=== PATIENT | male | born 1950 | race Caucasian/White ===

== ENCOUNTER 2023-11-09 07:29 | Emergency (ER) | payer MEDICARE, OTHER, SELFPAY ==
[2023-11-09] VITALS (17 sets, daily range): BP systolic 100–147; BP diastolic 58–118; BMI 26.1
--- NOTE | 2023-11-09 07:46 | ED.GENMED ---
History of Present Illness
General
Chief Complaint: Heart Rate Problem
Time Seen by Provider: 11/09/23 07:45
Travel History
Have you had any contact with someone who has COVID-19?: No
Do you have any symptoms of coronavirus? Fever > 100 degrees, chills, cough, shortness of breath, sore throat, loss of taste or smell, muscle aches, or headache?: No
History of Present Illness
History of Present Illness:
HPI: At midnight (about 8 hours ago), the patient had abrupt onset sensation of palpitations. This woke him from sleep. Intermittently he has been having similar episodes overnight. He has some vague lightheadedness with exertion but currently
only has palpitations at rest. He does not have any chest pain. He states he is compliant with Xarelto and last took it last night. He denies missing any doses of Xarelto.
EXAM:
GENERAL: Well appearing in no distress
HEENT: Moist oral mucosa
CARDIOVASCULAR: No murmurs, tachycardic heart rate with irregular rhythm, No chest wall tenderness
PULMONARY: No respiratory distress, breath sounds are clear and equal
ABDOMEN: Soft with no peritoneal signs, no tenderness
NEUROLOGIC: Excellent strength all extremities, no coordination deficits
PSYCHIATRIC: Appropriate mental status, normal insight and judgement
EXTREMITIES: Nontender, no edema, moves all extremities equally
SKIN: No rash, no lesions
ED COURSE:
7:50 AM: I initially evaluated patient
NUMBER AND COMPLEXITY OF PROBLEMS ADDRESSED AT THE ENCOUNTER
� Chronic conditions affecting care: Atrial fibrillation on Xarelto
� Acute Exacerbation and/or Progression of Chronic Illness: Acute exacerbation of chronic problem
� Differential Diagnosis includes: Rapid atrial fibrillation
AMOUNT AND/OR COMPLEXITY OF DATA TO BE REVIEWED AND ANALYZED
� I performed an independent evaluation of and my interpretation is:
EKG: A-fib 126, left axis deviation, borderline LVH, on 03/29/2021, the patient was in sinus rhythm
CT:
X-rays:
Laboratory Studies: CBC and chemistries unremarkable, TSH currently pending.
Other:
� Review of other/old records: Had admission in November 2020 for new onset A-fib; the patient had a pacemaker placed March 29, 2021 due to sick sinus syndrome
� Clinical information was obtained by an independent historian: I spoke to the at bedside
� Prescriptions/Medications Considered but not given:
� Further testing considered but not performed:
RISK OF COMPLICATIONS AND/OR MORBIDITY OR MORTALITY OF PATIENT MANAGEMENT
� Social determinants of health affecting care: Lives at home
� Discussion with other providers: At around 8 AM, I discussed case with Dr. Campos who agrees with electrocardioversion then ablation as outpatient
� Escalation of care including admission/observation vs risk of discharge considered: Patient arrives in rapid A-fib with rates in the 130s to 160s range. He has some vague lightheadedness with exertion but currently only feels
some mild palpitations at rest. He is very well-appearing. He gave informed written consent for procedural sedation and electrical cardioversion. Dr. Campos was in agreement with this. At 9:01 AM, the patient underwent successful procedural
sedation/electrocardioversion. On reassessment at 9:25 AM, the patient has no further symptoms. He is very well-appearing and feels comfortable going home. He was instructed not to drive today.
Past History
Past History
ED Past Medical History: Other (BPH on Flomax)
Social History
Tobacco: Non-smoker
Employment: Employed
Phy Exam
Physical Exam
Physical Exam:
See HPI
Course
Orders/Labs/Results
Orders:
Orders
11/09/23 07:34
Electrocardiogram (*1) Urgent
Reason for Study: Atrial Fibrillation
EKG- Treatment ONCE
11/09/23 07:59
Basic Metabolic Panel Urgent
Complete Blood Count/With Diff Urgent
Magnesium Urgent
TSH Reflex To Free T4 Urgent
11/09/23 08:23
Propofol [Diprivan] 20 ml .ROUTE .STK-MED
11/09/23 09:09
Electrocardiogram (*1) Urgent
Reason for Study: Atrial Fibrillation
EKG- Treatment ONCE
Abnormal Lab Results
11/09/23
07:59
RBC 4.12 L 10^6/uL
(4.70-6.10)
Hct 37.7 L %
(39.0-52.0)
MCH 32.0 H pg
(27.0-31.0)
Absolute Lymphs (auto) 1.0 L 10^3/uL
(1.2-3.4)
Absolute Monos (auto) 0.7 H 10^3/uL
(0.1-0.6)
Lymphocytes % 17.3 L %
(20.5-51.1)
Monocytes % 12.3 H %
(1.7-9.3)
Chloride 109 H mmol/L
(98-107)
BUN 25 H mg/dl
(9-20)
Glucose 127 H mg/dl
(70-99)
11/09/23 07:59
11/09/23 07:59
Vital Signs
Initial and Last Documented VS:
Initial Vital Signs
Temp Pulse Resp BP Pulse Ox
98.1 F 66 18 135/69 98
11/09/23 07:31 11/09/23 07:31 11/09/23 07:31 11/09/23 07:31 11/09/23 07:31
Last Documented Vital Signs
Temp Pulse Resp BP Pulse Ox
97.6 F 68 18 100/59 94
11/09/23 09:24 11/09/23 09:35 11/09/23 09:35 11/09/23 09:35 11/09/23 09:35
Procedures
Cardioversion
Indication:: Afib
Synchronized?: Yes
Energy Used: 200 joules
Number of attempts: 1
Successful?: Yes
ASA Risk Score: Class II
Any reaction or bad outcome to prior sedation/anesthesia?: No history of a reaction
Sedation level to be attained: moderate
Chart and allergies reviewed: Yes
Patient reassessed prior to sedation: Yes
Time out completed at (validating right patient & procedure): 09:01
History of difficult intubation: No
Airway free of obstruction: Yes
Patient has a gag reflex: Yes
Patient is able to open mouth: Yes
Patient has no dentures: Yes
Patient has no loose teeth: Yes
Medication administered by Provider during Moderate Sedation: IV Propofol (mg)
Total dose administered: 80
Time drug administered: :
Start Time: 09:01
Stop Time: 09:06
*Critical Care Note
Total Time (30-74mins, 75-104mins- exclusive of procedures): Not Applicable
ED Attending Note
-
Portions of this chart may have been created with voice recognition software.� Occasional wrong word or��sound alike� substitutions may have occurred due to the inherent limitations of voice recognition software.
Discharge Plan
Departure
Patient Disposition: Home (Routine Discharge)
Date of Disposition: 11/09/23
Time of Disposition: :24
Patient with high blood pressure during this ER visit?: Yes
Discharge Problem:
Atrial fibrillation with rapid ventricular response
Instructions: Atrial Fibrillation (DC)
Prescriptions:
No Action
tamsulosin 0.4 MG capsule
0.4 mg PO DAILY
multivitamin with folic acid [Tab-A-Anai] 1 TABLET tablet
1 tab PO DAILY
rivaroxaban [Xarelto] 20 MG tablet
20 mg PO QPM Qty: 30 0RF
glucosamine brewer 2KCl-chondroit [Glucosamine Sulf-Chondroitin] 1 EACH capsule
1 cap PO DAILY
omega 3-zao-ukj-fish oil [Fish Oil] 1 EACH capsule
1 ea PO DAILY
diltiazem HCl 120 MG capsule,extended release 24hr
120 mg PO DAILY Qty: 90 3RF
Rx Instructions:
Restart in AM 03/30
furosemide 20 MG tablet
20 mg PO SUTUTH
Referrals:
Juan Francisco Mustafa MD [Family Provider] -
Activity Restrictions/Additional Instructions:
You were sedated and successfully underwent electrical cardioversion. I discussed with Dr. Kumar's partner, Dr. Campos, earlier. Continue your normal medication. Return here if worse. Follow-up with cardiology. No driving today.
Interventions
Interventions:
*Risk Screen - Suicide Last Done: 11/09/23 07:31
*General Assessment Last Done: 11/09/23 07:31
*Neglect/Abuse Screening Last Done: 11/09/23 07:31
ED- Fall Risk Assessment Last Done: 11/09/23 07:46
*ED COVID-19 Vaccine History Last Done: 11/09/23 07:46
ED- Cardiac Assessment Last Done: 11/09/23 07:46
ED- Pulmonary Assessment Last Done: 11/09/23 07:46
[2023-11-09 08:10] LABS: % Basophils 0.4 % (0-2); % Eosinophils 0.9 % (0-6); % Lymphocytes 17.3 % (20.5-51.1); % Monocytes 12.3 % (1.7-9.3); % Neutrophils 69.1 % (42.2-75.2); Absolute Eosinophils 0.1 10^3/uL (0-0.7); Absolute Monocytes 0.7 10^3/uL (0.1-0.6); Hematocrit 37.7 % (39.0-52.0); Hemoglobin 13.2 g/dL (13.0-18.0); Mean Corpuscular Volume 91.5 fL (80.0-94.0); Mean Platelet Volume 9.2 fL (7.4-10.4); Nucleated Red Blood Cells % 0 % (-); Platelet Count 189 10^3/uL (130-400); Red Blood Cell Count 4.12 10^6/uL (4.70-6.10); Red Cell Dist. Width 13.1 % (11.5-14.5); White Blood Cell Count 5.7 10^3/uL (4.8-10.8)
[2023-11-09 08:40] LABS: Blood Urea Nitrogen 25 mg/dl (9-20); Calcium 9.2 mg/dl (8.4-10.2); Carbon Dioxide 23 mmol/L (22-30); Chloride 109 mmol/L (98-107); Estimated Creatinine Clearance 77 ml/min; Glucose 127 mg/dl (70-99); Magnesium 1.9 mg/dl (1.6-2.3); Potassium 3.8 mmol/L (3.5-5.1); Sodium 139 mmol/L (135-145); eGFR > 60.00
[2023-11-09 10:13] LABS: TSH Reflex To Free T4 4.01 uIU/ml (0.47-4.68)
== END 2023-11-09 10:38 | disposition home or self-care (01) ==
LOC: EMR 07:29
PROVIDERS: EMERGENCY PHYSICIAN Emergency Medicine; FAMILY PHYSICIAN Family Medicine
DX: R00.2 Palpitations (principal); R42 Dizziness and giddiness; I48.91 Unspecified atrial fibrillation; Z79.01 Long term (current) use of anticoagulants; Z95.0 Presence of cardiac pacemaker; N40.0 Benign prostatic hyperplasia without lower urinary tract symptoms
CPT/HCPCS: 92960; 99285; 99152; 80048; 83735; 84443; 85025; 93005

== ENCOUNTER 2024-03-07 06:03 | Emergency (ER) | payer MEDICARE, OTHER, SELFPAY ==
[2024-03-07 06:15] VITALS: BP 160/85
[2024-03-07 06:48] LABS: % Basophils 0.6 % (0-2); % Eosinophils 1.5 % (0-6); % Immature Granulocytes 0.4 % (0-0.5); % Lymphocytes 25.7 % (20.5-51.1); % Monocytes 14.5 % (1.7-9.3); % Neutrophils 57.3 % (42.2-75.2); Absolute Eosinophils 0.1 10^3/uL (0-0.7); Absolute Lymphocytes 1.2 10^3/uL (1.2-3.4); Absolute Monocytes 0.7 10^3/uL (0.1-0.6); Absolute Neutrophils 2.7 10^3/uL (1.4-6.5); Hematocrit 38.6 % (39.0-52.0); Hemoglobin 13.5 g/dL (13.0-18.0); Mean Corpuscular Hgb 31.4 pg (27.0-31.0); Mean Corpuscular Volume 89.8 fL (80.0-94.0); Mean Platelet Volume 8.9 fL (7.4-10.4); Nucleated Red Blood Cells % 0 % (-); Platelet Count 186 10^3/uL (130-400); White Blood Cell Count 4.7 10^3/uL (4.8-10.8)
[2024-03-07 06:55] LABS: ALT (SGPT) 24 U/L (0-50); AST (SGOT) 27 U/L (17-59); Alkaline Phosphatase 55 U/L (38-126); Blood Urea Nitrogen 25 mg/dl (9-20); Calcium 9.6 mg/dl (8.4-10.2); Carbon Dioxide 23 mmol/L (22-30); Chloride 106 mmol/L (98-107); Glucose 113 mg/dl (70-99); Potassium 3.8 mmol/L (3.5-5.1); Sodium 139 mmol/L (135-145); Total Bilirubin 1.1 mg/dl (0.2-1.3); eGFR > 60.00
[2024-03-07 07:06] LABS: Troponin I < 0.012 ng/ml
--- NOTE | 2024-03-07 09:22 | ED.GENMED ---
History of Present Illness
General
Chief Complaint: Heart Rate Problem
Exam Limitations: none
Time Seen by Provider: 03/07/24 09:20
Nursing documentation reviewed up to this point in time: agreed with
Travel History
Have you had any contact with someone who has COVID-19?: No
Do you have any symptoms of coronavirus? Fever > 100 degrees, chills, cough, shortness of breath, sore throat, loss of taste or smell, muscle aches, or headache?: No
History of Present Illness
History of Present Illness:
Patient is a 73-year-old male with history of A-fib, heart murmur mitral valve prolapse presents to the ER for evaluation of elevated heart rate. Patient reports he took his heart rate yesterday randomly and it was in the 80s. He reports it
normally is in the 60s. He randomly checks his pulse. He does have a history of A-fib and is anticoagulated as documented but did not feel that he was in A-fib.
He has no symptoms, denies any chest pain lightheaded dizziness. He denies any recent illness. He denies any new ljfe-srm-coiccft cough cold medicines. He is on Xarelto. He is a patient of Dr. Kumar
Past History
Past History
ED Past Medical History: Other (BPH on Flomax)
Social History
Tobacco: Non-smoker
Employment: Employed
Review of Systems
Review of Systems
Allergies reviewed?: Yes
All Other Systems: ROS reviewed and negative except as documented in HPI and ROS
Constitutional: Reports no symptoms; Denies fatigue
Respiratory: Reports no symptoms
Cardiac: Reports no symptoms
ABD/GI: Reports no symptoms
Musculoskeletal: Reports no symptoms
Skin: Reports no symptoms
Neurological: Reports no symptoms
Psychiatric: Reports no symptoms
Phy Exam
General Physical Exam
General Presentation: no apparent distress
General age: appears stated age
General Skin: warm and dry
General Habitus: normal
General Mental: alert
General Hydration: appears well hydrated
Cardiovascular Exam
Cardiovascular Exam: regular rate/rhythm, no murmur and normal peripheral pulses
Pulmonary Exam
Pulmonary Exam: lungs clear and no respiratory distress
Neurological Exam
Neurological Exam: alert and oriented x3
[place] Coma Scale
Eye Opening: Spontaneous
Verbal Response: Oriented
Motor Response: Obeys Commands
GCS Total Score: 15
Musculoskeletal Exam
Musculoskeletal Exam: full ROM
Skin Exam
Skin Exam: normal color and warm/dry
Psychiatric Exam
Psychiatric Exam: normal mood/affect
Course
Orders/Labs/Results
Orders:
Orders
03/07/24 06:05
EKG [Electrocardiogram (*1)] Urgent
Reason for Study: Palpitations
EKG- Treatment ONCE
03/07/24 06:26
Complete Blood Count/With Diff Urgent
Comprehensive Metabolic Panel Urgent
TSH Reflex To Free T4 Urgent
Comment: ADD ON
Troponin I Urgent
03/07/24 09:49
0.9% Sodium Chloride 500 ml [Nss] 500 ml IV BOLUS
03/07/24 09:50
Add On- LAB Urgent
Tests Added?: tsh w/ reflexive t4
Abnormal Lab Results
03/07/24
06:26
WBC 4.7 L 10^3/uL
(4.8-10.8)
RBC 4.30 L 10^6/uL
(4.70-6.10)
Hct 38.6 L %
(39.0-52.0)
MCH 31.4 H pg
(27.0-31.0)
Absolute Monos (auto) 0.7 H 10^3/uL
(0.1-0.6)
Monocytes % 14.5 H %
(1.7-9.3)
BUN 25 H mg/dl
(9-20)
Glucose 113 H mg/dl
(70-99)
03/07/24 06:26
03/07/24 06:26
Vital Signs
Initial and Last Documented VS:
Initial Vital Signs
Temp Pulse Resp BP Pulse Ox
98.2 F 78 16 160/85 98
03/07/24 06:15 03/07/24 06:15 03/07/24 06:15 03/07/24 06:15 03/07/24 06:15
Last Documented Vital Signs
Temp Pulse Resp BP Pulse Ox
98.2 F 67 16 152/77 97
03/07/24 06:15 03/07/24 11:08 03/07/24 11:08 03/07/24 11:08 03/07/24 11:08
MDM/Problems Addressed
MDM/Problems Addressed:
Patient is a 73-year-old male who checked his heart randomly and it was found to be in the 80s. He reports normally is in the 60s. He is asymptomatic. He presents here awake alert no acute distress heart rate here in the monitor has been in the
60s to 70s. He remains in no acute distress with no symptoms. No concerning findings on labs. His BUN is mildly elevated He was initially written for fluids but wants to go . I did encourage patient to increase fluid intake. Stable for
discharge home with outpatient follow-up by his garnett fixer/family doctor.
*Pulse Oximetry
Patient hypoxic: no
*EKG
Interpreted by ED Provider?: Yes
Heart Rate: 78
Rate: normal
Rhythm: sinus
*Critical Care Note
Total Time (30-74mins, 75-104mins- exclusive of procedures): Not Applicable
ED Attending Note
-
Portions of this chart may have been created with voice recognition software.� Occasional wrong word or��sound alike� substitutions may have occurred due to the inherent limitations of voice recognition software.
Discharge Plan
Departure
Patient Disposition: Home (Routine Discharge)
Date of Disposition: 03/07/24
Time of Disposition: 10:45
Patient with high blood pressure during this ER visit?: Yes
Discharge Problem:
medical evaluation
Instructions: BLOOD PRESSURE
Prescriptions:
No Action
tamsulosin 0.4 MG capsule
0.4 mg PO DAILY
multivitamin with folic acid [Tab-A-Anai] 1 TABLET tablet
1 tab PO DAILY
rivaroxaban [Xarelto] 20 MG tablet
20 mg PO QPM Qty: 30 0RF
glucosamine brewer 2KCl-chondroit [Glucosamine Sulf-Chondroitin] 1 EACH capsule
1 cap PO DAILY
omega 9-xhq-jwp-fish oil [Fish Oil] 1 EACH capsule
1 ea PO DAILY
diltiazem HCl 120 MG capsule,extended release 24hr
120 mg PO DAILY Qty: 90 3RF
Rx Instructions:
Restart in AM 03/30
furosemide 20 MG tablet
20 mg PO SUTUTH
Referrals:
Aldo Kumar MD [Active] -
Juan Francisco Mustafa MD [Family Provider] -
Activity Restrictions/Additional Instructions:
As discussed increase fluid intake. You are here for elevated heart rate today however your heart rate was normal here in the ER. Return if any worsening of symptoms of lightheaded dizziness chest pain. Continue to take your medications as
previously recommended and return if any worsening of symptoms. Follow-up with cardiology/family practice as needed.
Interventions
Interventions:
*Risk Screen - Suicide Last Done: 03/07/24 06:08
*General Assessment Last Done: 03/07/24 06:08
*Neglect/Abuse Screening Last Done: 03/07/24 06:08
ED- Fall Risk Assessment Last Done: 03/07/24 06:08
*ED COVID-19 Vaccine History Last Done: 03/07/24 06:08
*Nursing Disposition Last Done: 03/07/24 11:11
Discharge Date and Time
Discharge Date/Time: 03/07/24 11:12
Print Language: ALBANIAN
[2024-03-07 11:08] VITALS: BP 152/77
== END 2024-03-07 11:12 | disposition home or self-care (01) ==
LOC: EMR 06:03
PROVIDERS: Nurse Practitioner; EMERGENCY PHYSICIAN Emergency Medicine; FAMILY PHYSICIAN Family Medicine
DX: Z04.89 Encounter for examination and observation for other specified reasons (principal); I48.91 Unspecified atrial fibrillation; R01.1 Cardiac murmur, unspecified; I34.1 Nonrheumatic mitral (valve) prolapse; N40.0 Benign prostatic hyperplasia without lower urinary tract symptoms; Z79.01 Long term (current) use of anticoagulants
CPT/HCPCS: 99283; 80053; 84443; 84484; 85025; 93005

== ENCOUNTER 2024-11-28 04:22 | Emergency (ER) | payer MEDICARE, OTHER, SELFPAY ==
[2024-11-28] VITALS (11 sets, daily range): BP systolic 125–143; BP diastolic 63–82; BMI 26.3
[2024-11-28 04:49] LABS: % Basophils 0.5 % (0-2); % Eosinophils 1.6 % (0-6); % Immature Granulocytes 0.2 % (0-0.5); % Lymphocytes 25.9 % (20.5-51.1); % Monocytes 13.3 % (1.7-9.3); % Neutrophils 58.5 % (42.2-75.2); Absolute Eosinophils 0.1 10^3/uL (0-0.7); Absolute Lymphocytes 1.5 10^3/uL (1.2-3.4); Absolute Monocytes 0.8 10^3/uL (0.1-0.6); Absolute Neutrophils 3.4 10^3/uL (1.4-6.5); Hematocrit 39.1 % (39.0-52.0); Hemoglobin 13.5 g/dL (13.0-18.0); Mean Corp Hgb Conc. 34.5 g/dL (33.0-37.0); Mean Corpuscular Hgb 31.8 pg (27.0-31.0); Mean Corpuscular Volume 92.2 fL (80.0-94.0); Mean Platelet Volume 9.5 fL (7.4-10.4); Nucleated Red Blood Cells % 0 % (-); Platelet Count 167 10^3/uL (130-400); Red Blood Cell Count 4.24 10^6/uL (4.70-6.10); White Blood Cell Count 5.7 10^3/uL (4.8-10.8)
[2024-11-28 05:21] LABS: ALT (SGPT) 24 U/L (0-50); AST (SGOT) 22 U/L (17-59); Albumin 4.3 g/dl (3.5-5.0); Alkaline Phosphatase 55 U/L (38-126); Blood Urea Nitrogen 25 mg/dl (9-20); Calcium 9.6 mg/dl (8.4-10.2); Carbon Dioxide 21 mmol/L (22-30); Chloride 106 mmol/L (98-107); Glucose 118 mg/dl (70-99); Potassium 3.9 mmol/L (3.5-5.1); Sodium 137 mmol/L (135-145); Total Bilirubin 1.3 mg/dl (0.2-1.3); Total Protein 6.9 g/dl (6.3-8.2); eGFR > 60.00
[2024-11-28 05:23] LABS: Troponin I < 0.012 ng/ml
--- NOTE | 2024-11-28 06:47 | ED.GENMED ---
History of Present Illness
General
Chief Complaint: Heart Rate Problem
Source: patient
Time Seen by Provider: 11/28/24 06:38
History of Present Illness
History of Present Illness:
73-year-old male presents to the emergency room complaining of rapid and irregular heartbeat. He has a history of atrial fibrillation which she states is related to an abnormal mitral valve. He takes diltiazem and Xarelto because of this. He has
been compliant with his Xarelto and denies missing any doses in the past couple weeks. Patient has undergone cardioversion in the past. He does have a pacemaker. Patient believes the symptoms began yesterday with irregular heart rate and also we
note he felt short of breath ascending a flight of steps that he would expect. He does also have some dizziness.
Past History
Past History
ED Past Medical History: Other (BPH on Flomax)
Social History
Tobacco: Non-smoker
Employment: Employed
Phy Exam
Physical Exam
Physical Exam:
General: Awake, Alert, Oriented X3. No acute distress.
Vitals: Tachycardic
Head: Atraumatic
Eyes: Pupils equal, EOMI
Throat: Airway intact, no exudates
Neck: Trachea midline
Lungs: Clear and equal b/l
Heart: Tachycardic, irregular rate, no murmurs
Neuro: Nonfocal
Skin: Warm, dry, no rash
Extremities: pulses equal b/l, no edema
Course
Orders/Labs/Results
Orders:
Orders
11/28/24 04:24
Electrocardiogram (*1) Urgent
Reason for Study: Atrial Fibrillation
11/28/24 04:25
EKG- Treatment ONCE
11/28/24 04:42
Complete Blood Count/With Diff Urgent
Comprehensive Metabolic Panel Urgent
Troponin I Urgent
11/28/24 06:47
Propofol [Diprivan] 20 ml .ROUTE .STK-MED
11/28/24 07:04
EKG [Electrocardiogram (*1)] Urgent
Reason for Study: Atrial Fibrillation
Comment: cardioversion
11/28/24 07:05
EKG- Treatment ONCE
Abnormal Lab Results
11/28/24
04:42
RBC 4.24 L 10^6/uL
(4.70-6.10)
MCH 31.8 H pg
(27.0-31.0)
Absolute Monos (auto) 0.8 H 10^3/uL
(0.1-0.6)
Monocytes % 13.3 H %
(1.7-9.3)
Carbon Dioxide 21 L mmol/L
(22-30)
BUN 25 H mg/dl
(9-20)
Glucose 118 H mg/dl
(70-99)
11/28/24 04:42
11/28/24 04:42
Vital Signs
Initial and Last Documented VS:
Initial Vital Signs
Temp Pulse Resp BP Pulse Ox
97.6 F 74 20 138/82 100
11/28/24 04:29 11/28/24 04:29 11/28/24 04:29 11/28/24 04:29 11/28/24 04:29
Last Documented Vital Signs
Temp Pulse Resp BP Pulse Ox
98.3 F 76 10 132/70 96
11/28/24 08:41 11/28/24 08:30 11/28/24 08:30 11/28/24 08:30 11/28/24 08:30
Procedures
Cardioversion
Indication:: Afib
Synchronized?: Yes
Energy Used: 200 joules
Successful?: Yes
ASA Risk Score: Class II
Any reaction or bad outcome to prior sedation/anesthesia?: No history of a reaction
Sedation level to be attained: moderate
Chart and allergies reviewed: Yes
Patient reassessed prior to sedation: Yes
Time out completed at (validating right patient & procedure): 06:56
History of difficult intubation: No
Airway free of obstruction: Yes
Patient has a gag reflex: Yes
Patient is able to open mouth: Yes
Patient has no dentures: Yes
Patient has no loose teeth: Yes
Medication administered by Provider during Moderate Sedation: IV Propofol (mg)
Total dose administered: 60
Time drug administered: 06:58
Start Time: 06:58
Stop Time: 07:08
*Pulse Oximetry
Patient hypoxic: no
*EKG
Interpreted by ED Provider?: Yes
Heart Rate: 78
Rate: normal
Rhythm: sinus
[place]: normal axis
Interval: normal interval
QRS Pattern: normal QRS
Ischemia: no ischemia
*Knitting Machine Mechanic Interpretation
Rate: normal
Interpretation: normal
Rhythm: sinus
*Critical Care Note
Total Time (30-74mins, 75-104mins- exclusive of procedures): Not Applicable
ED Attending Note
-
Portions of this chart may have been created with voice recognition software.� Occasional wrong word or��sound alike� substitutions may have occurred due to the inherent limitations of voice recognition software.
Discharge Plan
Departure
Patient Disposition: Home (Routine Discharge)
Date of Disposition: 11/28/24
Time of Disposition: 08:13
Patient with high blood pressure during this ER visit?: No
Condition: Good
Discharge Problem:
Paroxysmal A-fib
Instructions: Atrial Fibrillation (DC), Procedural Sedation, Adult ED
Prescriptions:
No Action
tamsulosin 0.4 MG capsule
0.4 mg PO DAILY
multivitamin with folic acid [Tab-A-Anai] 1 TABLET tablet
1 tab PO DAILY
rivaroxaban [Xarelto] 20 MG tablet
20 mg PO QPM Qty: 30 0RF
glucosamine brewer 2KCl-chondroit [Glucosamine Sulf-Chondroitin] 1 EACH capsule
1 cap PO DAILY
omega 3-kgy-sht-fish oil [Fish Oil] 1 EACH capsule
1 ea PO DAILY
diltiazem HCl 120 MG capsule,extended release 24hr
120 mg PO DAILY Qty: 90 3RF
Rx Instructions:
Restart in AM 03/30
furosemide 20 MG tablet
20 mg PO SUTUTH
Referrals:
Juan Francisco Mustafa MD [Family Provider] -
Activity Restrictions/Additional Instructions:
Please call your cardiology office to make an appointment for follow up.
Interventions
Interventions:
*Risk Screen - Suicide Last Done: 11/28/24 04:29
*General Assessment Last Done: 11/28/24 07:04
*Neglect/Abuse Screening Last Done: 11/28/24 04:29
ED- Fall Risk Assessment Last Done: 11/28/24 06:29
*ED COVID-19 Vaccine History Last Done: 11/28/24 07:04
*Nursing Disposition Last Done: 11/28/24 08:42
ED- Cardiac Assessment Last Done: 11/28/24 06:29
ED- Pulmonary Assessment Last Done: 11/28/24 06:29
Discharge Date and Time
Discharge Date/Time: 11/28/24 08:44
Print Language: ARMENIAN
== END 2024-11-28 08:44 | disposition home or self-care (01) ==
LOC: EMR 04:22
PROVIDERS: Emergency Medicine; EMERGENCY PHYSICIAN Emergency Medicine; FAMILY PHYSICIAN Family Medicine
DX: I48.0 Paroxysmal atrial fibrillation (principal); N40.0 Benign prostatic hyperplasia without lower urinary tract symptoms; Z79.01 Long term (current) use of anticoagulants; Z79.899 Other long term (current) drug therapy; Z95.0 Presence of cardiac pacemaker
CPT/HCPCS: 92960; 99152; 99285; 80053; 84484; 85025; 93005

== ENCOUNTER → 2025-01-17 09:12 | Outpatient (REF) | payer MEDICARE, OTHER, SELFPAY | LOC: HWRCS 09:12 | PROVIDERS: ATTENDING PHYSICIAN Internal Medicine; FAMILY PHYSICIAN Family Medicine | DX: I48.0 Paroxysmal atrial fibrillation (principal); I49.5 Sick sinus syndrome | CPT/HCPCS: 93306 ==

== ENCOUNTER → 2025-03-06 11:02 | Outpatient (REF) | payer MEDICARE, OTHER, SELFPAY | LOC: HWRAD 11:02 | PROVIDERS: ATTENDING PHYSICIAN Family Medicine | DX: R19.09 Other intra-abdominal and pelvic swelling, mass and lump (principal) | CPT/HCPCS: 76870; 93976 ==

== ENCOUNTER → 2025-05-26 10:41 | Outpatient (REF) | payer MEDICARE, OTHER, SELFPAY | LOC: REG 10:41 | PROVIDERS: ATTENDING PHYSICIAN Physician Assistant; FAMILY PHYSICIAN Family Medicine | DX: M25.572 Pain in left ankle and joints of left foot (principal); M79.672 Pain in left foot; R58 Hemorrhage, not elsewhere classified | CPT/HCPCS: 73610; 73630 ==

== ENCOUNTER 2025-09-04 20:00 | Emergency (ER) | payer MEDICARE, OTHER, SELFPAY ==
[2025-09-04] VITALS (15 sets, daily range): BP systolic 122–145; BP diastolic 66–91; BMI 26.7
[2025-09-04 20:17] LABS: Hematocrit 40.1 % (39.0-52.0); Hemoglobin 13.5 g/dL (13.0-18.0); Mean Corp Hgb Conc. 33.7 g/dL (33.0-37.0); Mean Corpuscular Volume 87.9 fL (80.0-94.0); Nucleated Red Blood Cells % 0 % (-); Platelet Count 189 10^3/uL (130-400); Red Cell Dist. Width 14.7 % (11.5-14.5)
[2025-09-04 20:37] LABS: ALT (SGPT) 23 U/L (0-50); AST (SGOT) 22 U/L (17-59); Albumin 4.2 g/dl (3.5-5.0); Alkaline Phosphatase 47 U/L (38-126); Blood Urea Nitrogen 31 mg/dl (9-20); Calcium 9.6 mg/dl (8.4-10.2); Carbon Dioxide 28 mmol/L (22-30); Chloride 104 mmol/L (98-107); Glucose 130 mg/dl (70-99); Potassium 4.1 mmol/L (3.5-5.1); Sodium 136 mmol/L (135-145); Total Protein 7.5 g/dl (6.3-8.2); eGFR > 60.00
--- NOTE | 2025-09-04 22:46 | ED.GENMED ---
History of Present Illness
<Peter Mercedes MD - Last Filed: 09/04/25 22:47>
General
Chief Complaint: Heart Rate Problem
Time Seen by Provider: 09/04/25 22:01
<Moreno Cuevas PA-C - Last Filed: 09/04/25 23:47>
General
Source: patient
History of Present Illness
History of Present Illness:
74-year-old male with past medical history of atrial fibrillation presenting to the emergency department for evaluation after he felt himself going to go to for bed earlier today, persistent palpitations throughout the day so decided to come to the
ER for further evaluation. He notes no pain but does endorse some mild lightheadedness. No fevers or recent illnesses. He does admit to drinking a few cups of coffee daily and his symptoms did start at breakfast while drinking coffee. Notes that
he has been cardioverted before for A-fib. He reports he takes Xarelto daily and good compliance, took his dose this evening.
Past History
<Peter Mercedes MD - Last Filed: 09/04/25 22:47>
Past History
ED Past Medical History: Other (BPH on Flomax)
Social History
Tobacco: Non-smoker
Employment: Employed
<Moreno Cuevas PA-C - Last Filed: 09/04/25 23:47>
Past History
ED Past Medical History: Arrthythmia and Valvular disease
ED Past Surgical History: Cardiac and Orthopedic
Social History
Alcohol: Occasional
Drug: None
Personal:
Living: with family
Review of Systems
<Moreno Cuevas PA-C - Last Filed: 09/04/25 23:47>
Review of Systems
All Other Systems: ROS reviewed and negative except as documented in HPI and ROS
Phy Exam
<Moreno Cuevas PA-C - Last Filed: 09/04/25 23:47>
Physical Exam
Physical Exam:
GENERAL: Alert , in no apparent distress
EYE: clear conjunctiva
NECK: Supple
ENT: o/p clr, mmm.
CARDIAC: Irregularly irregular, tachycardic to 110bpm
LUNGS: Clear breath sounds bilaterally, no acute respiratory distress,
ABDOMEN: Soft, without focal tenderness, no r/g, no cvat
NEUROLOGICAL: Alert and oriented, no focal neuro deficits
SKIN: Warm and dry, skin intact.
MUSCULOSKELETAL: No edema, well perfused.
PSYCH: Normal and appropriate interaction.
Scores
<Moreno Cuevas PA-C - Last Filed: 09/04/25 23:47>
Heart Failure Risk
Heart Failure Risk Score: Not Applicable
Heart Score for Chest Pain Patients
STEMI patient?: Not applicable
Withdrawal Assessment of Alcohol
Withdrawal Assessment Completed?: Not applicable
Course
<Peter Mercedes MD - Last Filed: 09/04/25 22:47>
Orders/Labs/Results
Orders:
Orders
09/04/25 20:02
EKG [Electrocardiogram (*1)] Urgent
Reason for Study: Tachycardia
EKG- Treatment ONCE
09/04/25 20:12
CMP [Comprehensive Metabolic Panel] Urgent
Complete Blood Count/With Diff Urgent
09/04/25 22:24
Propofol [Diprivan] 20 ml .ROUTE .STK-MED
09/04/25 22:43
Electrocardiogram (*1) Urgent
Reason for Study: Atrial Fibrillation
EKG- Treatment ONCE
Abnormal Lab Results
09/04/25
20:12
RBC 4.56 L 10^6/uL
(4.70-6.10)
RDW 14.7 H %
(11.5-14.5)
Absolute Monos (auto) 0.7 H 10^3/uL
(0.1-0.6)
Monocytes % 12.1 H %
(1.7-9.3)
BUN 31 H mg/dl
(9-20)
Glucose 130 H mg/dl
(70-99)
09/04/25 20:12
09/04/25 20:12
Vital Signs
Initial and Last Documented VS:
Initial Vital Signs
Temp Pulse Resp BP Pulse Ox
97.9 F 104 19 145/82 97
09/04/25 20:04 09/04/25 20:04 09/04/25 20:04 09/04/25 20:04 09/04/25 20:04
Last Documented Vital Signs
Temp Pulse Resp BP Pulse Ox
97.9 F 69 18 122/77 96
09/04/25 23:14 09/04/25 23:15 09/04/25 23:15 09/04/25 23:15 09/04/25 23:15
<Moreno Cuevas PA-C - Last Filed: 09/04/25 23:47>
Orders/Labs/Results
Orders:
Orders
09/04/25 20:02
EKG [Electrocardiogram (*1)] Urgent
Reason for Study: Tachycardia
EKG- Treatment ONCE
09/04/25 20:12
CMP [Comprehensive Metabolic Panel] Urgent
Complete Blood Count/With Diff Urgent
09/04/25 22:24
Propofol [Diprivan] 20 ml .ROUTE .STK-MED
09/04/25 22:43
Electrocardiogram (*1) Urgent
Reason for Study: Atrial Fibrillation
EKG- Treatment ONCE
Abnormal Lab Results
09/04/25
20:12
RBC 4.56 L 10^6/uL
(4.70-6.10)
RDW 14.7 H %
(11.5-14.5)
Absolute Monos (auto) 0.7 H 10^3/uL
(0.1-0.6)
Monocytes % 12.1 H %
(1.7-9.3)
BUN 31 H mg/dl
(9-20)
Glucose 130 H mg/dl
(70-99)
09/04/25 20:12
09/04/25 20:12
Vital Signs
Initial and Last Documented VS:
Initial Vital Signs
Temp Pulse Resp BP Pulse Ox
97.9 F 104 19 145/82 97
09/04/25 20:04 09/04/25 20:04 09/04/25 20:04 09/04/25 20:04 09/04/25 20:04
Last Documented Vital Signs
Temp Pulse Resp BP Pulse Ox
97.9 F 69 18 122/77 96
09/04/25 23:14 09/04/25 23:15 09/04/25 23:15 09/04/25 23:15 09/04/25 23:15
Procedures
<Peter Mercedes MD - Last Filed: 09/04/25 22:47>
Moderate Sedation
Moderate Sedation Start Time(when first medication is given): 22:39
Moderate Sedation Procedure End Time: 22:44
<Moreno Cuevas PA-C - Last Filed: 09/04/25 23:47>
Cardioversion
Indication:: Afib
Performed by:: Dr. Mercedes/Ra Cuevas
Synchronized?: Yes
Energy Used: 200 joules
Number of attempts: 1
Successful?: Yes
ASA Risk Score: Class II
Any reaction or bad outcome to prior sedation/anesthesia?: No history of a reaction
Sedation level to be attained: moderate
Chart and allergies reviewed: Yes
Patient reassessed prior to sedation: Yes
Time out completed at (validating right patient & procedure): 22:38
History of difficult intubation: No
Airway free of obstruction: Yes
Patient has a gag reflex: Yes
Patient is able to open mouth: Yes
Patient has no dentures: Yes
Patient has no loose teeth: Yes
Medication administered by Provider during Moderate Sedation: IV Propofol (mg)
Total dose administered: 50
Time drug administered: 22:39
Start Time: 22:39
Stop Time: 22:59
<Moreno Cuevas PA-C - Last Filed: 09/04/25 23:47>
MDM/Problems Addressed
Differential Diagnosis Includes:
Afib
Other Arrhythmia
Valvular Disease
Electrolyte Imbalance
MDM/Problems Addressed:
74-year-old male presenting to the ER after he felt himself go into A-fib earlier today, EKG done in triage confirms A-fib with rates up as high as 110 bpm. Patient is otherwise hemodynamically stable, well-appearing and in no acute distress.
Discussed with patient different treatment modalities including increasing his dose of Cardizem and having him follow-up as an outpatient with his cardiology team. Patient ultimately opted for cardioversion as he has had good success with this in
the past.
Acute Exacerbation and/or Progression of Chronic Illness: Arrhythmia
<Peter Mercedes MD - Last Filed: 09/04/25 22:47>
*Pulse Oximetry
SaO2: 98
Oxygen Mode of Delivery: Room air
<Moreno Cuevas PA-C - Last Filed: 09/04/25 23:47>
*Pulse Oximetry
Patient hypoxic: no
*EKG
Heart Rate: 101
Rate: tachycardiac
Rhythm: a-fib
[place]: left axis deviation
*Disc Inspector Interpretation
Rate: tachycardiac
Heart Rate: 105
Rhythm: a-fib
*Critical Care Note
Total Time (30-74mins, 75-104mins- exclusive of procedures): Not Applicable
Data Reviewed
Review of Other/Old Records Reveals: Records
<Moreno Cuevas PA-C - Last Filed: 09/04/25 23:47>
Patient Management
Escalation/DeEscalation of care consider admission/obs:
Patient tolerated procedure well. I did advise the patient to be careful with caffeine intake. Contact cardiology for a follow-up visit. Aware of return precautions to the ER.
ED Attending Note
<Peter Mercedse MD - Last Filed: 09/04/25 22:47>
ED Attending Note
Patient seen and examined by attending physician: Yes
ED Attending Note:
I have seen and evaluated the patient with a [id number] encounter. I have spoken to the advance practicer provider and involved in the medical history, the physical exam, medical decision making.
Evaluation and management service: agree unless noted differently below.
Results interpretation: agree unless noted differently below.
Focused HPI: 74-year-old male with history as noted significant for A-fib on Xarelto presents for evaluation of palpitations consistent with his typical A-fib symptoms. Symptoms started yesterday and have been constant since that time. No chest
pain or shortness of breath or any other acute complaints. He is on Xarelto and compliant.
Physical exam: Awake and alert not in distress. Tachycardic with irregularly irregular rhythm. Breathing comfortably without distress. No edema in the legs. No JVD.
Medical Decision Makin-year-old male with a history of A-fib on Xarelto presents with palpitations consistent with his typical A-fib symptoms. Mild tachycardia heart rate 90s to 100s during my assessment. Labs unremarkable. Patient is a
reasonable candidate for elective ED cardioversion and he wishes to proceed with his procedure. He was successfully cardioverted as documented in procedure note will observe after cardioversion and if remains stable can be discharged.
-
Portions of this chart may have been created with voice recognition software.� Occasional wrong word or��sound alike� substitutions may have occurred due to the inherent limitations of voice recognition software.
Discharge Plan
Departure
Patient Disposition: Home (Routine Discharge)
Date of Disposition: 09/04/25
Time of Disposition: 23:21
Patient with high blood pressure during this ER visit?: Yes
Discharge Problem:
Atrial fibrillation
Instructions: Atrial Fibrillation (DC), Sedation for procedures in adults - ED (DC)
Prescriptions:
No Action
tamsulosin 0.4 MG capsule
0.4 mg PO DAILY
multivitamin with folic acid [Tab-A-Anai] 1 TABLET tablet
1 tab PO DAILY
rivaroxaban [Xarelto] 20 MG tablet
20 mg PO QPM Qty: 30 0RF
glucosamine brewer 2KCl-chondroit [Glucosamine Sulf-Chondroitin] 1 EACH capsule
1 cap PO DAILY
omega 0-nxa-gaw-fish oil [Fish Oil] 1 EACH capsule
1 ea PO DAILY
diltiazem HCl 120 MG capsule,extended release 24hr
120 mg PO DAILY Qty: 90 3RF
Rx Instructions:
Restart in AM 03/30
furosemide 20 MG tablet
20 mg PO SUTUTH
Referrals:
Juan Francisco Mustafa MD [Family Provider, Family Practice]
Interventions
Interventions:
*Risk Screen - Suicide Last Done: 09/04/25 20:04
*General Assessment Last Done: 09/04/25 20:38
*Neglect/Abuse Screening Last Done: 09/04/25 20:04
*ED COVID-19 Vaccine History Last Done: 09/04/25 20:38
*ED Influenza Vaccine History Last Done: 09/04/25 20:38
[facility] Fall Risk Assessment Tool Last Done: 09/04/25 20:38
*Nursing Disposition Last Done: 09/04/25 23:35
ED- Cardiac Assessment Last Done: 09/04/25 20:39
ED- Pulmonary Assessment Last Done: 09/04/25 20:39
Discharge Date and Time
Discharge Date/Time: 09/04/25 23:39
Print Language: KHMER
== END 2025-09-04 23:39 | disposition home or self-care (01) ==
LOC: EMR 20:00
PROVIDERS: EMERGENCY PHYSICIAN Emergency Medicine; FAMILY PHYSICIAN Family Medicine
DX: I48.91 Unspecified atrial fibrillation (principal); N40.0 Benign prostatic hyperplasia without lower urinary tract symptoms; Z79.01 Long term (current) use of anticoagulants
CPT/HCPCS: 92960; 99152; 99285; 80053; 85025; 93005; 96360